=== PATIENT | female | born 1990 | race Caucasian/White ===

== ENCOUNTER → 2017-03-11 18:15 | Observation (INO) ==
[2017-03-11 16:45] LABS: Bilirubin,Urine Negative (Negative); Blood,Urine Negative (Negative); Clarity,Urine Cloudy (Clear); Color,Urine Yellow (Yellow); Glucose,Urine (UA) Normal (Normal); Ketones,Urine Negative (Negative); Leukocyte Esterase,Urine Negative (Negative); Nitrite,Urine Negative (Negative); Protein,Urine 30 mg/dL (Neg-Trace); Urobilinogen,Urine Normal (Normal)
[2017-03-11 16:52] LABS: Amphetamine Screen,Urine Negative ng/mL (Cutoff=1000); Barbiturate Screen,Urine Negative ng/mL (Cutoff=200); Benzodiazepines Screen,Urine Negative ng/mL (Cutoff=200); Cannabinoid Screen,Urine Negative ng/mL (Cutoff = 50); Cocaine Screen,Urine Negative ng/mL (Cutoff= 300); Opiate Screen,Urine Negative ng/mL (Cutoff=300); Phencyclidine Screen,Urine Negative ng/mL (Cutoff=25)
[2017-03-11 16:56] LABS: Squamous Epithelial Cell,Urine Many per lpf (None-Few)
[2017-03-11 16:57] LABS: Amorphous Sediment,Urine Few (Few); Bacteria,Urine Moderate per hpf (None-Few); RBC,Urine 0-3 per hpf (0-3)
--- NOTE | 2017-03-11 17:48 | OB/GYN Progress Note ---
Date of Encounter: 03/11/17 Time of Encounter: 17:35 - Assessment and Plan (1) with 30 completed weeks gestation Current Visit: Yes Status: Acute (2) Vaginal discharge in in third trimester Current Visit: Yes Status: Acute - Cervical exam showed negative pooling, negative nitrazine, and negative ferning test. - Vaginosis panel obtained - UA showed proteinuria, negative UTI Subjective - Subjective Principal diagnosis: watery discharge Interval history: Reena is a 26 y/o female at 30+6 weeks with a pmh of preeclampsia with first child presented to the ED with watery gushes beginning this morning. Patient states that they did not soak through her pants but did soak through her underwear the first time but not the other two times. Patient states that she had back pain last night which has resolved. The patient states movement is normal and it does not really contractions. Patient states that she had an elevated blood pressure in the office yesterday of 150/80 for today was 130/80. Patient denies fever, chills, weakness, dizziness, diarrhea, dysuria, recent fall. Patient does admit to having a headache 5/10 today but attributes it to not sleeping for the last 2 days because Patient denies vaginal bleeding. I examined this patient and my medical decision-making was reviewed with the Resident Physician. I agree with the documented findings, disposition and treatment plan as described except to the extent set forth below. DONNIE Conrad Antepartum ROS: loss of fluid, movement normal, no vaginal bleeding, no contractions Objective - Vital Signs Vital Signs: Intake and Output BP 138/80. Temp 99.5F 03/11/17 03/11/17 03/11/17 07:59 15:59 23:59 Other: Weight 85 kg Patient Weight 03/11/17 23:59 Weight 85 kg - Exam FHR: category 1 Auscultation: bilateral: normal Abdomen: Present: normal appearance, soft Cervical dilation: cervical os closed. Comments: Speculum exam showed negative pooling, negative nitrazine, negative ferning - Labs Labs: Abnormal lab results Urine Clarity Cloudy (Clear) A 03/11/17 16:35 Urine Protein 30 mg/dL (Neg-Trace) H 03/11/17 16:35 Urine Microscopic WBC 3-5 per hpf (0-3) H 03/11/17 16:35 Ur Squamous Epith Cells Many per lpf (None-Few) H 03/11/17 16:35 Urine Bacteria Moderate per hpf (None-Few) H 03/11/17 16:35
--- NOTE | 2017-03-11 18:07 | Discharge Summary ---
Date of Encounter: 03/11/17 Time of Encounter: 18:05 - Discharge Diagnosis (1) with 30 completed weeks gestation Priority: Primary Status: Acute (2) Vaginal discharge in in third trimester Priority: Secondary Status: Acute Comments: speculum exam:Negative pooling, negative, Nitrazine. vaginosis panel collected. Will call patient with results. (3) NST (non-stress test) reactive Priority: Secondary Status: Acute Comments: FHR baseline 145bpm. Moderate variability. + 15 x 15. No decels noted. - Discharge Medications Home Medications: Vit/Iron Fumarate/FA [ Tablet] 1 each PO DAILY 03/11/17 [ History] Ranitidine HCl [Zantac] 150 mg PO DAILY 03/11/17 [History] Allergies/Adverse Reactions: 3 Allergy/AdvReac Type Severity Reaction Status Date / Time ferrous sulfate Allergy Rash Verified 03/11/17 16:50 Data Procedures and tests throughout hospitalization: Laboratory Tests 03/11/17 03/11/17 16:35 16:35 Urine Color Yellow Urine Clarity Cloudy A Urine pH 7.0 Ur Specific Brohman 1.020 Urine Protein 30 H Urine Glucose (UA) Normal Urine Ketones Negative Urine Blood Negative Urine Nitrite Negative Urine Bilirubin Negative Urine Urobilinogen Normal Ur Leukocyte Esterase Negative Urine Microscopic RBC 0-3 Urine Microscopic WBC 3-5 H Ur Squamous Epith Cells Many H Amorphous Sediment Few Urine Bacteria Moderate H Ur Culture Indicated? NO Urine Opiates Screen Negative Ur Barbiturates Screen Negative Ur Phencyclidine Scrn Negative Ur Amphetamines Screen Negative U Benzodiazepines Scrn Negative Urine Cocaine Screen Negative U Marijuana (THC) Screen Negative Labs on day of discharge: Labs from last 24 hours 03/11/17 03/11/17 16:35 16:35 Urine Color Yellow Urine Clarity Cloudy A Urine pH 7.0 Ur Specific Brohman 1.020 Urine Protein 30 H Urine Glucose (UA) Normal Urine Ketones Negative Urine Blood Negative Urine Nitrite Negative Urine Bilirubin Negative Urine Urobilinogen Normal Ur Leukocyte Esterase Negative Urine Microscopic RBC 0-3 Urine Microscopic WBC 3-5 H Ur Squamous Epith Cells Many H Amorphous Sediment Few Urine Bacteria Moderate H Ur Culture Indicated? NO Urine Opiates Screen Negative Ur Barbiturates Screen Negative Ur Phencyclidine Scrn Negative Ur Amphetamines Screen Negative U Benzodiazepines Scrn Negative Urine Cocaine Screen Negative U Marijuana (THC) Screen Negative Date of admission: 03/11/17 16:10 Primary care physician: PCP NONE Discharging clinician: Alda Anderson Anticipated date of discharge: 03/11/17 - Patient Status Disposition: Home, Self-Care Condition: Good Functional capacity at discharge: independent ambulation Overall status at discharge: patient is progressing back to baseline - Discharge Instructions Follow Up With: NONE,PCP [Primary Care Provider] - Miguel Love DO [Partnered Physician] - Additional Instructions: LABOR AND DELIVERY DISCHARGE INSTRUCTIONS Signs and Symptoms to be Reported to your Doctor Immediately: * Sudden gush, continuous or intermittent lead of fluid from vagina (note the time of gush and color of fluid) * Onset of bright red vaginal bleeding with or without pain (if you had a vaginal exam during this visit you may notice some dark red spotting. This is normal.) * Lower abdominal cramping or backache that is premenstrual-like feeling. * More than 6 contractions in one hour. * Burning during urination, having to urinate more frequently or pain in your mid-back. * A change in the baby's activity. This could be an increase or decrease in activity. * Severe headache which does not go away with tylenol. * Sudden swelling in the face, hands, arms and/or legs. * Upper abdominal pain - sometimes associated with heartburn or nausea and is not relieved by Maalox, Mylanta or Tums. * Dizziness or blurred vision or visual disturbances (seeing stars/lights). * Kick Counts One hour after a meal, lay down on one side in a quiet place. Count the number of fede the baby moves during an hour. If less than 6 movements, notify your physician. Diet: *Force fluids - 8-10 tall glasses of fluid per day. May include popsicles and jello. 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 Time Attestation: Total time spent providing and/or coordinating discharge services: Time Spent: Less than 30 minutes Exam - Constitutional General appearance IM: A&O X 3, pleasant, answers questions appropriately - VTE Reasons for not Prescribing Prophylaxis: Treatment not Indicated - Low risk for VTE
[2017-03-11 18:20] LABS: Candida DNA ***DETECTED*** (Not Detect); Gardnerella DNA Not Detected (Not Detect); Trichomonas DNA Not Detected (Not Detect)
== END | disposition home or self-care (01) ==
LOC: 1NENULAB
PROVIDERS: ADMIT Obstetrics & Gynecology; ATTEND Obstetrics & Gynecology

== ENCOUNTER → 2017-03-30 19:01 | Observation (INO) ==
[2017-03-30 17:40] LABS: Bilirubin,Urine Negative (Negative); Blood,Urine Negative (Negative); Clarity,Urine Cloudy (Clear); Color,Urine Yellow (Yellow); Glucose,Urine (UA) Normal (Normal); Ketones,Urine 40 mg/dL (Negative); Leukocyte Esterase,Urine Negative (Negative); Nitrite,Urine Negative (Negative); PH,Urine 6.5 pH Units (5.0-8.0); Protein,Urine 30 mg/dL (Neg-Trace); Specific Gravity,Urine 1.015 (1.010-1.025); Urobilinogen,Urine Normal (Normal)
[2017-03-30 17:41] LABS: Amphetamine Screen,Urine Negative ng/mL (Cutoff=1000); Barbiturate Screen,Urine Negative ng/mL (Cutoff=200); Benzodiazepines Screen,Urine Negative ng/mL (Cutoff=200); Cannabinoid Screen,Urine Negative ng/mL (Cutoff = 50); Cocaine Screen,Urine Negative ng/mL (Cutoff= 300); Opiate Screen,Urine Negative ng/mL (Cutoff=300); Phencyclidine Screen,Urine Negative ng/mL (Cutoff=25)
--- NOTE | 2017-03-30 17:42 | OB/GYN Progress Note ---
Date of Encounter: 03/30/17 Time of Encounter: 17:37 - Assessment and Plan (1) 33 weeks gestation of Current Visit: Yes Status: Acute Continuous monitoring. speculum exam: Cervix appeared closed. Vaginosis panel collected and sent to lab (2) Abdominal pain during in third trimester Current Visit: Yes Status: Acute labor evaluation (3) NST (non-stress test) reactive Current Visit: No Status: Acute 130 bpm, moderate variability, +15x15 accels, no decels. Reactive NST Subjective - Subjective Principal diagnosis: R/O labor Interval history: Pt is a 26-year-old [id number] at 33w3d who presents with complaints of intermittent abdominal pain for the past several hours. Reports positive movement. Denies vaginal bleeding and leakage of fluid. Pt states she was diagnosed with URI earlier today and has a low-grade temperature. Reports two previous term deliveries with no history of labor. C/S x 2, primary c/s for intolerance to labor d/t nuchal cord. Antepartum ROS: movement normal, contractions, no loss of fluid, no vaginal bleeding Objective - Exam FHR: category 1 FHR comments: FHR 130 bpm, moderate variability, +15x15 accels, no decels. Auscultation: bilateral: normal Abdomen: Present: normal appearance, soft, gravid Uterus: Present: normal Cervical dilation: FT Cervix effacement: thick station: high Comments: Uterine irritability noted on contraction monitor.
[2017-03-30 17:45] LABS: Bacteria,Urine Few per hpf (None-Few); Hyaline Casts,Urine None Seen per lpf (None-Few); RBC,Urine 0-3 per hpf (0-3); Squamous Epithelial Cell,Urine Many per lpf (None-Few)
[2017-03-30 18:01] LABS: Amorphous Sediment,Urine Few (Few)
[2017-03-30 18:39] LABS: Candida DNA ***DETECTED*** (Not Detect); Gardnerella DNA Not Detected (Not Detect); Trichomonas DNA Not Detected (Not Detect)
--- NOTE | 2017-03-30 18:44 | Discharge Summary ---
Date of Encounter: 03/30/17 Time of Encounter: 18:44 - Discharge Diagnosis (1) 33 weeks gestation of Priority: Primary Status: Acute (2) Abdominal pain during in third trimester Priority: Secondary Status: Acute (3) NST (non-stress test) reactive Priority: Secondary Status: Acute (4) Yeast infection Priority: Secondary Status: Acute Comments: RX for Terazol cream - Discharge Medications Prescriptions: Terconazole [Terazol 7] 45 gm VG HS 7 Days #1 cream.[email or web address] Home Medications: Vit/Iron Fumarate/FA [ Tablet] 1 each PO DAILY 03/11/17 [ History] Ranitidine HCl [Zantac] 150 mg PO DAILY 03/11/17 [History] Acetaminophen [Tylenol] 650 mg PO Q6HR PRN tablet 03/30/17 [Rx] Terconazole [Terazol 7] 45 gm VG HS 7 Days #1 cream.[email or web address] 03/30/17 [Rx] Allergies/Adverse Reactions: 3 Allergy/AdvReac Type Severity Reaction Status Date / Time ferrous sulfate Allergy Rash Verified 03/11/17 16:50 Data Procedures and tests throughout hospitalization: Laboratory Tests 03/30/17 03/30/17 03/30/17 17:23 17:23 17:35 Urine Color Yellow Urine Clarity Cloudy A Urine pH 6.5 Ur Specific Bieber 1.015 Urine Protein 30 H Urine Glucose (UA) Normal Urine Ketones 40 H Urine Blood Negative Urine Nitrite Negative Urine Bilirubin Negative Urine Urobilinogen Normal Ur Leukocyte Esterase Negative Urine Microscopic RBC 0-3 Urine Microscopic WBC 3-5 H Ur Squamous Epith Cells Many H Amorphous Sediment Few Urine Bacteria Few Hyaline Casts None Seen Ur Culture Indicated? NO Urine Opiates Screen Negative Ur Barbiturates Screen Negative Ur Phencyclidine Scrn Negative Ur Amphetamines Screen Negative U Benzodiazepines Scrn Negative Urine Cocaine Screen Negative U Marijuana (THC) Screen Negative Doris species DNA DETECTED A Gardnerella DNA Probe Not Detected Trichomonas DNA Probe Not Detected Labs on day of discharge: Labs from last 24 hours 03/30/17 03/30/17 03/30/17 17:35 17:23 17:23 Urine Color Yellow Urine Clarity Cloudy A Urine pH 6.5 Ur Specific Bieber 1.015 Urine Protein 30 H Urine Glucose (UA) Normal Urine Ketones 40 H Urine Blood Negative Urine Nitrite Negative Urine Bilirubin Negative Urine Urobilinogen Normal Ur Leukocyte Esterase Negative Urine Microscopic RBC 0-3 Urine Microscopic WBC 3-5 H Ur Squamous Epith Cells Many H Amorphous Sediment Few Urine Bacteria Few Hyaline Casts None Seen Ur Culture Indicated? NO Urine Opiates Screen Negative Ur Barbiturates Screen Negative Ur Phencyclidine Scrn Negative Ur Amphetamines Screen Negative U Benzodiazepines Scrn Negative Urine Cocaine Screen Negative U Marijuana (THC) Screen Negative Doris species DNA DETECTED A Gardnerella DNA Probe Not Detected Trichomonas DNA Probe Not Detected Date of admission: 03/30/17 17:11 Discharging clinician: Alda Anderson Anticipated date of discharge: 03/30/17 - Patient Status Disposition: Home, Self-Care Condition: Good Functional capacity at discharge: independent ambulation - Discharge Instructions Follow Up With: Miguel Love DO [Partnered Physician] - - Diet and Activity Activity: increase activity as tolerated Diet: regular diet 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 CAt. 1 tracing. No contractions - VTE Reasons for not Prescribing Prophylaxis: Treatment not Indicated - Low risk for VTE
[~2017-03-30 19:01] MED LIST: Acetaminophen 325 MG TABLET PO PRN
== END | disposition home or self-care (01) ==
LOC: 1NENULAB
PROVIDERS: ADMIT Student in an Organized Health Care Education/Training Program; ATTEND Student in an Organized Health Care Education/Training Program

== ENCOUNTER → 2017-04-15 17:09 | Observation (INO) ==
--- NOTE | 2017-04-15 15:12 | OB/GYN History & Physical ---
Date of Encounter: 04/15/17 Time of Encounter: 15:08 Assessment and Plan (1) 35 weeks gestation of Current visit: Yes Status: Acute Patient 35 weeks and 5 days. Denies vaginal bleeding, cramping or fluid leakage. We will perform PIH rule out labs. Disposition pending these results. (2) Hypertension affecting in third trimester Current visit: Yes Status: Acute Patient states she feels she has had high blood pressure. We will closely monitor vital signs and perform PIH workup. Disposition pending these results. History of Present Illness HPI: Ms. Fernandes is a 26 year old female who is 35 weeks and 5 days presenting to labor and delivery with concern for high blood pressure. Patient was seen in the office yesterday and had initial blood pressure 170/90 and a repeat blood pressure of 126/76. She was told to come to the labor and delivery unit if she felt like her blood pressure was increasing. Patient has had 2 spontaneous abortions. Her first was complicated by preeclampsia. Patient states last evening she had a headache which she took Tylenol 4 and this morning it was still mildly there. She states it is gone now. She states today while she was in the shower she started seeing lights flashing in her eyes. She has been feeling facial flushing and this is normally how she feels when her blood pressure is elevated. Patient denies any vaginal bleeding, cramping or fluid leakage. Denies any fevers, chest pain or shortness of breath. Denies any dizziness or passing out. Patient is HIV and Treponema negative. Rubella immune. Blood type O positive and no antibodies. Patient does have a child born with cleft lip. She is a history of 2 previous C -sections. Of note this is with a new father. Past Med Surg Social Fam HX - Past Medical History Medical history: no medical history Psychiatric history: no psych history - Past Surgical History Surgical History: - Social History Smoking Status: Never smoker Smokeless Tobacco Status: No Alcohol use: none Drug use: none - Family History Mother Living Status: Still Living Hx Family Respiratory Disorders: No Hx Family Cancer: No Hx Family GI Disorders: No Hx Family Endocrine Disorder: No Hx Family Neuromuscular Disorders: No Hx Family Neurologic Disorders: No Hx Family HEENT Disorders: No Hx Family Autoimmune Disorders: No Obstetrical History - Pregnancies : 5 Para: 2 Term: 2 : 0 Ab's: 2 Livin Medications and Allergies Vit/Iron Fumarate/FA [ Tablet] 1 each PO DAILY 03/11/17 [ History] Ranitidine HCl [Zantac] 150 mg PO DAILY 03/11/17 [History] Cephalexin [Keflex] 500 mg PO BID 04/15/17 [History] 3 Allergy/AdvReac Type Severity Reaction Status Date / Time ferrous sulfate Allergy Rash Verified 03/11/17 16:50 Review of System OB All systems PM: reviewed and no additional remarkable complaints except as stated - Neurological Nerological: headache(s) Exam - Constitutional Constitutional: well developed, well nourished, no acute distress, obese - HEENT HEENT: Normocephaly, Mucus Membranes Moist - Neck Neck exam: full ROM, normal inspection - Lungs Respiratory exam: CTAB - Cardiovascular Cardiovascular exam: RRR - Abdomen Abdomen: Present: bowel sounds normal, gravid, non tender - Extremities Deep Tendon Reflex Grade: 2+ Normal - Uterus Uterus exam: Present: enlarged (gravid), normal contour Results Result Diagrams: 04/15/17 15:40 04/15/17 15:40 All other labs normal. - VTE Reasons for not Prescribing Prophylaxis: Treatment not Indicated - Low risk for VTE
[2017-04-15 15:57] LABS: Basophils % 0.3 %; Eosinophils % 0.3 %; Hematocrit 32.4 % (35.3-44.9); Hemoglobin 10.7 g/dL (11.5-15.4); Immature Granulocytes % 0.8 % (0-4); Lymphocytes # 1.3 K/mcL (0.6-4.6); Lymphocytes % 13.3 %; Mean Corpuscular Hemoglobin 27.9 pg (28.0-33.3); Mean Corpuscular Volume 84.6 fL (83.0-100.0); Mean Platelet Volume 13.2 fL (9.4-12.4); Monocytes # 0.8 K/mcL (0.0-1.3); Monocytes % 8.4 %; Neutrophils # 7.6 K/mcL (1.6-8.9); Platelet Count 186 K/mcL (140-400); Red Blood Count 3.83 M/mcL (3.82-4.97); Segmented Neutrophils % 76.9 %
[2017-04-15 15:59] LABS: Bilirubin,Urine Negative (Negative); Blood,Urine Negative (Negative); Color,Urine Yellow (Yellow); Glucose,Urine (UA) Normal (Normal); Ketones,Urine Negative (Negative); Leukocyte Esterase,Urine Negative (Negative); Nitrite,Urine Negative (Negative); Protein,Urine Trace mg/dL (Neg-Trace); Specific Gravity,Urine 1.014 (1.010-1.025); Urobilinogen,Urine Normal (Normal)
[2017-04-15 16:05] LABS: Amphetamine Screen,Urine Negative ng/mL (Cutoff=1000); Barbiturate Screen,Urine Negative ng/mL (Cutoff=200); Benzodiazepines Screen,Urine Negative ng/mL (Cutoff=200); Cannabinoid Screen,Urine Negative ng/mL (Cutoff = 50); Cocaine Screen,Urine Negative ng/mL (Cutoff= 300); Opiate Screen,Urine Negative ng/mL (Cutoff=300); Phencyclidine Screen,Urine Negative ng/mL (Cutoff=25)
[2017-04-15 16:09] LABS: Clarity,Urine Slightly Hazy (Clear)
[2017-04-15 16:13] LABS: Alanine Aminotransferase 9 Units/L (7-52); Aspartate Amino Transferase 10 Units/L (13-39); BUN/Creatinine Ratio 9 (6-26); Blood Urea Nitrogen 4 mg/dL (6-20); Lactate Dehydrogenase 123 Units/L (140-271); Uric Acid 3.7 mg/dL (2.3-7.6); eGFR For African Americans > 60 (> 60); eGFR For Non-African Americans > 60 (> 60)
[2017-04-15 16:45] LABS: Protein/Creatinine Ratio,Urine 0.27 mg/mg (0.00-0.20)
== END | disposition home or self-care (01) ==
LOC: 1NENULAB
PROVIDERS: ADMIT Emergency Medicine; ATTEND Obstetrics & Gynecology

== ENCOUNTER → 2017-04-21 14:15 | Observation (INO) ==
[2017-04-21 13:02] LABS: Basophils % 0.2 %; Eosinophils % 0.3 %; Hemoglobin 11.1 g/dL (11.5-15.4); Immature Granulocytes % 0.9 % (0-4); Lymphocytes % 13.3 %; Mean Corpuscular HGB Conc 32.6 g/dL (31.6-35.5); Mean Corpuscular Hemoglobin 27.3 pg (28.0-33.3); Mean Corpuscular Volume 83.7 fL (83.0-100.0); Mean Platelet Volume 13.6 fL (9.4-12.4); Monocytes % 8.2 %; Platelet Count 175 K/mcL (140-400); Red Blood Count 4.06 M/mcL (3.82-4.97); Segmented Neutrophils % 77.1 %
[2017-04-21 13:03] LABS: Lymphocytes # 1.4 K/mcL (0.6-4.6); Monocytes # 0.9 K/mcL (0.0-1.3); Neutrophils # 8.2 K/mcL (1.6-8.9)
[2017-04-21 13:25] LABS: Amphetamine Screen,Urine Negative ng/mL (Cutoff=1000); Barbiturate Screen,Urine Negative ng/mL (Cutoff=200); Benzodiazepines Screen,Urine Negative ng/mL (Cutoff=200); Cannabinoid Screen,Urine Negative ng/mL (Cutoff = 50); Cocaine Screen,Urine Negative ng/mL (Cutoff= 300); Opiate Screen,Urine Negative ng/mL (Cutoff=300); Phencyclidine Screen,Urine Negative ng/mL (Cutoff=25)
[2017-04-21 13:27] LABS: Protein/Creatinine Ratio,Urine 0.26 mg/mg (0.00-0.20)
[2017-04-21 13:34] LABS: Alanine Aminotransferase 7 Units/L (7-52); Aspartate Amino Transferase 12 Units/L (13-39); BUN/Creatinine Ratio 11 (6-26); Blood Urea Nitrogen 4 mg/dL (6-20); Lactate Dehydrogenase 131 Units/L (140-271); Uric Acid 4.1 mg/dL (2.3-7.6); eGFR For African Americans > 60 (> 60); eGFR For Non-African Americans > 60 (> 60)
[2017-04-21 13:40] VITALS: BP 116/72
--- NOTE | 2017-04-21 13:49 | OB/GYN Progress Note ---
Date of Encounter: 04/21/17 Time of Encounter: 13:35 - Assessment and Plan (1) Hypertension affecting in third trimester Current Visit: Yes Status: Acute Assessment: 27 year old presenting with vision changes and hypertension at 36 weeks + 4 days GA BP in triage: 124/76, 120/72 PIH labs negative Category I FHR tracing Plan: Discharge home today Routine labor precautions PIH precautions Follow up in the office as scheduled Laboratory Results - last 24 hr 04/21/17 04/21/17 04/21/17 12:20 12:20 12:20 WBC 10.6 RBC 4.06 Hgb 11.1 L Hct 34.0 L MCV 83.7 MCH 27.3 L MCHC 32.6 RDW 14.0 Plt Count 175 MPV 13.6 H Immature Gran % 0.9 Seg Neutrophils % 77.1 Lymphocytes % 13.3 Monocytes % 8.2 Eosinophils % 0.3 Basophils % 0.2 Neutrophils # 8.2 Lymphocytes # 1.4 Monocytes # 0.9 Eosinophils # 0.0 Basophils # 0.0 BUN 4 L Creatinine 0.38 L Est GFR ( Amer) > 60 Est GFR (Non-Af Amer) > 60 BUN/Creatinine Ratio 11 Uric Acid 4.1 AST 12 L ALT 7 Lactate Dehydrogenase 131 L Urine Creatinine Protein/Creatinin Ratio Urine Total Protein Urine Opiates Screen Negative Ur Barbiturates Screen Negative Ur Phencyclidine Scrn Negative Ur Amphetamines Screen Negative U Benzodiazepines Scrn Negative Urine Cocaine Screen Negative U Marijuana (THC) Screen Negative 04/21/17 12:20 WBC RBC Hgb Hct MCV MCH MCHC RDW Plt Count MPV Immature Gran % Seg Neutrophils % Lymphocytes % Monocytes % Eosinophils % Basophils % Neutrophils # Lymphocytes # Monocytes # Eosinophils # Basophils # BUN Creatinine Est GFR ( Amer) Est GFR (Non-Af Amer) BUN/Creatinine Ratio Uric Acid AST ALT Lactate Dehydrogenase Urine Creatinine 47 Protein/Creatinin Ratio 0.26 H Urine Total Protein 12 Urine Opiates Screen Ur Barbiturates Screen Ur Phencyclidine Scrn Ur Amphetamines Screen U Benzodiazepines Scrn Urine Cocaine Screen U Marijuana (THC) Screen Subjective - Subjective Principal diagnosis: PIH evaluation Interval history: complicated by blood pressures trending up and vision changes today. GBS unknown Rubella immune Varicella immune Blood type: O+ PMH: PPH after G2 PSH: section x 2 Meds: Cephalexin 500 MG Capsule Imitrex 100 MG Tablet Plus 27-1 MG Tablet Ranitidine HCl 150 MG Tablet Terazol cream Allergies: Iron HPI: Pt sent from office today for increase in BP trending over past visits. Today she was also experiencing vision changes. Reports good FM. Denies ctx, vb , LOF. Antepartum ROS: other (vision changes today) Objective - Vital Signs Vital Signs: Vital Signs Temp Pulse Resp BP 04/21/17 12:40 98.1 F 86 18 124/76 Intake and Output 04/20/17 04/21/17 04/21/17 23:59 07:59 15:59 Other: Weight 86.2 kg Patient Weight 04/21/17 23:59 Weight 86.2 kg - Exam FHR: category 1 FHR comments: Baseline 150 Moderate variability Accelerations present 15x15 Decelerations absent Pyatt: uterine irritability Auscultation: bilateral: normal Abdomen: Present: normal appearance, soft, gravid Uterus: Present: normal - Labs Labs: Abnormal lab results Hgb 11.1 g/dL (11.5-15.4) L 04/21/17 12:20 Hct 34.0 % (35.3-44.9) L 04/21/17 12:20 MCH 27.3 pg (28.0-33.3) L 04/21/17 12:20 MPV 13.6 fL (9.4-12.4) H 04/21/17 12:20 BUN 4 mg/dL (6-20) L 04/21/17 12:20 Creatinine 0.38 mg/dL (0.60-1.20) L 04/21/17 12:20 AST 12 Units/L (13-39) L 04/21/17 12:20 Lactate Dehydrogenase 131 Units/L (140-271) L 04/21/17 12:20 Protein/Creatinin Ratio 0.26 mg/mg (0.00-0.20) H 04/21/17 12:20
== END | disposition home or self-care (01) ==
LOC: 1NENULAB
PROVIDERS: ADMIT Obstetrics & Gynecology; ATTEND Obstetrics & Gynecology

== ENCOUNTER 2017-12-11 04:37 | Observation (INO) ==
[2017-12-11] MEDS ORDERED: Ondansetron 4 MG/2 ML VIAL IVP PRN ×2 (05:43→15:17)
[2017-12-11] MEDS: Ringers Solution, Lactated 1,000 ML IVC SCH ×3 (06:13→15:34)
--- NOTE | 2017-12-11 10:27 | General Surg History&Physical ---
<GildardoAsherSaqib R - Last Filed: 12/11/17 10:47> Date of Encounter: 12/11/17 Time of Encounter: 08:30 Assessment and Plan (1) Abdominal pain Current Visit: Yes Status: Acute The assessment and plan as outlined above was discussed with the patient and/or family members who expressed understanding and agreement. All questions were answered. Patient remains tender to palpation of the RLQ, WBC 17.5 CT abdomen and pelvis revealed prominent RLQ lymph nodes, was equivocal for acute appendicitis Plan: IV antibiotics-Zosyn Nothing by mouth IV fluids To OR today for laparoscopic appendectomy Comfort care pain management prn antiemetic Qualifiers: Abdominal location: right lower quadrant Qualified Code(s): R10.31 - Right lower quadrant pain History of Present Illness Chief complaint: abdominal pain HPI: Ms. Fernandes is a 27 year old female with no significant medical history. She presented to [facility] ED early this a.m. for evaluation of sudden onset right lower quadrant abdominal pain. This started approximately 1 AM, waking the patient from sleep. She did experience diarrhea at onset. Pain is sharp in quality and 9 out of 10 initially. Associated periumbilical pain. Patient states that she was well yesterday evening and denies history of similar pain. Denies nausea, vomiting, or fevers. Denies history of ovarian cysts. Surgical history significant for 3 prior sections, with most recent in April of this year. Status post tubal ligation. At present patient's pain is better controlled, however right lower quadrant is photographer still. She has received Zofran for nausea. Denies recent vomiting. Denies diarrhea, constipation or chills. Past Med Surg Social Fam HX - Past Medical History Medical history: no medical history Additional medical history: UMBILICAL HERNIA Psychiatric history: anxiety - Past Surgical History Surgical History: Additional surgical history: c section x 3. tubal - Social History Smoking Status: Never smoker Smokeless Tobacco Status: No Alcohol use: none Drug use: none - Family History Mother Adopted: No Living Status: Still Living Hx Family Cardiac Disorders: No Hx Family Respiratory Disorders: No Hx Family Cancer: No Hx Family GI Disorders: No Hx Family Endocrine Disorder: No Hx Family Neuromuscular Disorders: No Hx Family Neurologic Disorders: No Hx Family HEENT Disorders: No Hx Family Autoimmune Disorders: No Medications and Allergies No Known Home Drugs 12/11/17 [History] 3 Allergy/AdvReac Type Severity Reaction Status Date / Time ferrous sulfate Allergy Mild Rash Verified 12/11/17 01:55 Review of Systems All systems PM: The remainder of the systems were reviewed and are negative - Constitutional no chills, no fever(s) - Cardiovascular no chest pain - Respiratory no dyspnea - Gastrointestinal abdominal pain, loose stools, no diarrhea, no hematemesis, no hematochezia, no melena, no nausea, no vomiting - Genitourinary Genitourinary: no dysuria General Surgery Exam Initial Vital Signs Temp Pulse Resp BP Pulse Ox 99.3 F 94 16 148/92 97 12/11/17 05:10 12/11/17 05:10 12/11/17 05:10 12/11/17 05:10 12/11/17 05:10 - General physical appearance well developed, well nourished, no distress - Eyes PERRL, normal ocular movement - ENT normal mucosa, atraumatic, normocephalic - Neck trachea midline, no venous distension - Respiratory normal expansion, normal respiratory effort, clear to auscultation - Cardiovascular Cardiovascular exam: Present: RRR, no murmurs/rubs/gallops - Abdomen Abdomen general surgery: Present: bowel sounds present (Infrequent), soft, tender, rebound (Tenderness of the right lower quadrant to palpation, rebound is present, no guarding), surgical scars (Well-healed prior section scar). Absent: distended, guarding, rigid - Integumentary Integumentary general surgery: Present: warm and dry - Neurologic Present: CN 2-12 grossly intact - Musculoskeletal Present: normal posture - Psychiatric Psychiatric general surgery: Present: A&Ox3, oriented to person, oriented to place, oriented to time, speech is normal Results - Labs All other labs normal. <Jose Ryder - Last Filed: 12/11/17 12:46> Date of Encounter: 12/11/17 History of Present Illness HPI: Ms. Fernandes is a 27 year old female Review of Systems All systems PM: The remainder of the systems were reviewed and are negative General Surgery Exam Initial Vital Signs Temp Pulse Resp BP Pulse Ox 99.3 F 94 16 148/92 97 12/11/17 05:10 12/11/17 05:10 12/11/17 05:10 12/11/17 05:10 12/11/17 05:10 Results - Labs All other labs normal. - Attending Attestation I have personally seen and examined the patient. I have reviewed pertinent labs , imaging, progress notes, including this one. I agree with the above assessment and plan and wish to include the following... 27F with acute appendicits; okay for OR
[2017-12-11] MEDS ORDERED: OXYCODONE Oral CONC 10 MG/0.5 ML ORAL.SYG SL PRN ×2 (10:42→15:17)
[2017-12-11] MEDS ORDERED: Ketorolac 15 MG/ML VIAL IVP PRN ×2 (10:44→15:17)
[2017-12-11] MEDS ORDERED: Piperacillin/Tazobactam 3.375 GM in 0.9 % Sodium Chloride Mini Bag 100 ML IVPB SCH (11:30)
[2017-12-11] MEDS ORDERED: *HR* Propofol 200 MG/20 ML VIAL IVP ONE (12:36)
[2017-12-11] MEDS ORDERED: *HR* Midazolam HCl 2 MG/2 ML VIAL ONE (12:36)
[2017-12-11] MEDS ORDERED: *HR* Rocuronium Bromide 50 MG/5 ML VIAL ONE (12:36)
[2017-12-11] MEDS ORDERED: Lidocaine -MPF 2% 2 ML VIAL ONE (12:36)
[2017-12-11] MEDS ORDERED: *HR* FentaNYL (PF) 100 MCG/2 ML VIAL ONE (12:36)
--- NOTE | 2017-12-11 12:36 | Anesthesia Evaluation PreOp ---
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 Other Medical History: Denies Any Significant HX Anesthesia History: No Prior Anesthetic Complications : No Test: Negative Alcohol Use: none Drug use: none Medications and Allergies No Known Home Drugs 12/11/17 [History] 3 Allergy/AdvReac Type Severity Reaction Status Date / Time ferrous sulfate Allergy Mild Rash Verified 12/11/17 01:55 - Meds/Allergy Pre-op Review Medications Reviewed: Yes Allergies Reviewed: Yes Beta Blockers on Current Med List: No Anesthesia Results - Labs Laboratory Tests 04/26/17 04/26/17 12/11/17 10:11 10:11 02:22 Hgb 11.7 12.8 Hct 35.9 38.3 Plt Count 162 251 Sodium Potassium BUN 6 Creatinine 0.39 L Urine Test 12/11/17 12/11/17 02:22 02:34 Hgb Hct Plt Count Sodium 137 Potassium 3.2 L BUN 11 Creatinine 0.70 Urine Test Negative Anesthesia Exam O2 Sat Height 1.65 m Weight 71.214 kg O2 Sat by Pulse Oximetry 99 O2 Sat by Pulse Oximetry 99 O2 Sat by Pulse Oximetry 97 Vital Signs Temp Pulse Resp BP Pulse Ox 99.3 F 94 16 148/92 97 12/11/17 05:10 12/11/17 05:10 12/11/17 05:10 12/11/17 05:10 12/11/17 05:10 Height: 5'5 Weight: 157 lbs NPO (# of Hours): MN Pain Scale: 1 - HEENT Pupil (Motor): Pupils equal, EOMI Mallampati: II Teeth: Normal Oral Opening: Greater than 3 - COSMETICS AND TOILETRIES SALESPERSON LOC: Oriented COSMETICS AND TOILETRIES SALESPERSON Motor: Normal RUE, Normal LUE, Normal RLE, Normal LLE, Normal Face [employer]MET[employer] AND TOILE[employer]IES SALESPERSON Sensory: Normal: RUE, LUE, RLE, LLE, Face - Cardiac Rhythm: Regular Murmur: None JVD: No Carotid Bruit: No - Pulmonary Breath Sounds: bilateral Clear Respiratory Effort: Symmetrical Anesthesia Assess/Plan ASA Score: 1 Modified Bingham Scale for Level of Consciousness: Cooperative, oriented, and tranquil Anesthetic Plan: General Monitoring Plan: Standard Monitors Recovery Plan: PACU (Discussed GA, agrees to proceed)
[2017-12-11] MEDS ORDERED: Ondansetron 4 MG/2 ML VIAL IVP ONE (12:58)
[2017-12-11] MEDS ORDERED: *HR* Promethazine 25 MG/ML VIAL IVP PRN (12:58)
[2017-12-11] MEDS ORDERED: *HR* Morphine 2 MG/ML SYRINGE IVP PRN (12:58)
[2017-12-11] MEDS ORDERED: Famotidine 20 MG/2 ML VIAL ONE (13:01)
[2017-12-11] MEDS ORDERED: Acetaminophen IV 1,000 MG/100 ML INFUS..BTL ONE (13:01)
[2017-12-11] MEDS ORDERED: Dexamethasone 4 MG/ML VIAL ONE (13:40)
[2017-12-11] MEDS ORDERED: Ketorolac 30 MG/ML VIAL ONE (13:40)
[2017-12-11] MEDS ORDERED: Ondansetron 4 MG/2 ML VIAL ONE (13:40)
[2017-12-11] MEDS ORDERED: Neostigmine Methylsulfate 3 MG/3 ML SYRINGE ONE (13:49)
--- NOTE | 2017-12-11 15:07 | Operative Note ---
Date of procedure: 12/11/17 Pre-op diagnosis: acute appendicitis Post-op diagnosis: same Procedure: laparoscopic appendectomy Implants: none Complications: none Anesthesia: GETA Local Anesthetics: 0.5% Sensorcaine HCL SubQ (cc) Surgeon: Jose Ryder Was there an sales assistant entertainment and media present: No Flatwork Presser Other: Tj Braswell Estimated blood loss (cc): 5 Specimen: appendix Condition: stable Disposition: PACU Procedure in Detail: The patient was brought into the operating room suite. The patient was placed in the supine position. Mechanical DVT prophylaxis was initiated. The patient underwent smooth induction of general endotracheal anesthesia. The patient was prepped and draped in the usual fashion. Preoperative antibiotics were given. A timeout was held identifying the correct patient, pathology, and procedure. Everyone was in agreement and we began a procedure. Incision to Mesenteric Window I started bycreating a supraumbilical incision and via open Jarquin technique entered into the abdomen. I then used a Vicryl suture on a UR 6 needle in a [id number] fashion to reapproximate but not close the fascia. I then inserted the 10 trocar followed by the camera to visualize the intraabdominal cavity. I then created a 5 mm incision suprapubically and inserted the 5 mm trocar under direct visualization. Roughly 1 handbreadth lateral to the umbilical incision I created another 5 mm incision and inserted another 5 mm trocar under direct visualization. I then inserted the nontraumatic instruments into the 5 mm ports and began the procedure. I was able to identify the tinea coli coalescing at the base of the cecum to identify the appendix. Using the nontraumatic grasper I was able to grasp the appendix and then using the [place] dissector was able to create a mesenteric window. Mesenteric Window to Appendectomy I then inserted the nontraumatic grasper into the same mesenteric window to widen it. I then grasped the appendix and switched from the 10 mm camera to the 5 mm camera so that we can insert the stapler through the umbilical port. The teeth of the stapler through the mesenteric window. It should be stated that the stapler was a 45 mm bowel load stapler. It was positioned at the base of the appendix and I was able to confirm under direct visualization that the teeth contained no other structures such as the cecum. I then fired the stapler and resected the appendix from the base of the cecum. I then loaded up a vascular load stapler and then in the similar fashion did fire across the mesentery. Retrieval to Closure I then inserted the Endo Catch bag to retrieve the specimen which was intact upon retrieval. I then switched back to the 10 mm camera and inserted the nontraumatic grasper as well as a suction-electronic assembler group leader into the 5 mm ports. And under direct visualization I was able to appreciate the staple line of the mesoappendix as well as the staple line of the base of the cecum. There was no obvious leaking nor bleeding. The pelvis did not have any collection of fluid. I then concluded the procedure, turned off the insufflation, removed the trochars under direct visualization, and then closed the umbilical fascia using the Vicryl suture that was placed at the beginning. I then closed all incisions with interrupted 4-0 Monocryl. And then sealed with Dermabon. It should be stated that I did use 0.5% Marcaine as a local anesthetic. The patient tolerated the procedure well and did go back to PACU in stable condition.
--- NOTE | 2017-12-11 15:27 | Anesthesia Evaluation Post Op ---
Date of Encounter: 12/11/17 Time of Encounter: 15:20 - Vital Signs Vital Signs: Vital Signs/O2 Sat/Glucose, Most Current Temp Pulse Resp BP Pulse Ox 12/11/17 15:15 75 123/80 99 12/11/17 15:00 97.6 F 77 16 126/90 98 12/11/17 14:51 70 16 126/91 98 12/11/17 14:41 78 16 132/97 100 12/11/17 14:31 97 F L 125 14 140/94 99 12/11/17 11:53 98.4 F 86 18 125/81 99 - Lungs Lungs: Clear Ascult./Percussion - Airway Airway: Non-obstructed - Cardiovascular Regular Rate - Mental Status Mental Status: Alert & Oriented, Answers Appropriately - Pain Pain Scale: 0 - Nausea Vomiting Nausea Vomiting: Not Present - Hydration Hydration: Ice chips - Discharge PostOp Status: Transfer Patient to floor
[2017-12-12] MEDS: Ringers Solution, Lactated 1,000 ML IVC SCH (01:13)
[2017-12-12 12:05] VITALS: BP 111/68
--- NOTE | 2017-12-12 12:23 | Discharge Summary ---
<Saqib Ewing R - Last Filed: 12/12/17 12:20> Orders not resulted at time of discharge: Pending orders 12/11/17 14:28 Surgical Pathology [PTH] Routine Date of Encounter: 12/12/17 Time of Encounter: 12:24 - Discharge Diagnosis (1) Acute appendicitis Priority: Primary Status: Acute Qualifiers: Qualified Code(s): K35.89 - Other acute appendicitis General Surgery Exam Initial Vital Signs Temp Pulse Resp BP Pulse Ox 99.3 F 94 16 148/92 97 12/11/17 05:10 12/11/17 05:10 12/11/17 05:10 12/11/17 05:10 12/11/17 05:10 - General physical appearance well developed, well nourished, no distress, no pain - Eyes normal ocular movement - ENT normal mucosa, atraumatic, normocephalic - Neck trachea midline - Respiratory normal expansion, normal respiratory effort, clear to auscultation - Cardiovascular Cardiovascular exam: Present: RRR - Abdomen Abdomen general surgery: Present: bowel sounds present, soft, tender (Expected postsurgical tenderness) - Integumentary Integumentary general surgery: Present: warm and dry - Neurologic Present: CN 2-12 grossly intact - Musculoskeletal Present: normal posture - Psychiatric Psychiatric general surgery: Present: A&Ox3, speech is normal, memory intact - Hospital Course Hospital course: Ms. Fernandes is a 27 year old female without significant medical history. She presented for evaluation of right lower quadrant pain on 12/11/2017 as transfer from [place] emergency department. Patient was suspected to have acute appendicitis given physical exam findings and CT images. Patient was taken to the operating room on 12/11/2017 for laparoscopic appendectomy. Patient tolerated the procedure well. Postoperatively patient has done well. Pain is well-controlled with oral medications. She is tolerating regular diet without nausea or vomiting. She is ambulating without assistance. Patient reports that right lower quadrant pain has resolved since surgery. She denies change in bowel, fever, or chills. Vital signs been within normal limits and stable. Patient is ready for discharge this afternoon. She will follow-up with outpatient surgery, Dr. Ryder, in approximately 2 weeks. - Time Spent with Patient Total time spent providing and/or coordinating discharge services: - Discharge Medications Prescriptions: OxyCODONE/APAP 5/325 [Percocet 5/325 MG] 1 each PO Q6HR PRN 7 Days #28 tablet PRN Reason: Pain Home Medications: OxyCODONE/APAP 5/325 [Percocet 5/325 MG] 1 each PO Q6HR PRN 7 Days #28 tablet [Rx] Allergies/Adverse Reactions: 3 Allergy/AdvReac Type Severity Reaction Status Date / Time ferrous sulfate Allergy Mild Rash Verified 12/11/17 01:55 Date of admission: 12/11/17 04:40 Primary care physician: PCP NONE Discharging clinician: Saqib Ewing Anticipated date of discharge: 12/12/17 - Patient Status Disposition: Home, Self-Care Condition: Good Overall status at discharge: patient is progressing back to baseline - Discharge Instructions Instructions: Oxycodone/Acetaminophen (By mouth), Laparoscopic Appendectomy (DC ) Follow Up With: Jose Ryder MD [Non-Partnered Physician] - (The office should call you with a follow up appointment. Please call them if you have not heard anything with in 1-2 working days. Thank you.) NONE,PCP [Primary Care Provider] - Additional Instructions: General Surgical Discharge Instructions 1. No pushing, pulling, or lifting greater than 15 lbs for 2-4 weeks (depending upon procedure). 2. You may shower beginning today, but no tub baths, soaking, or swimming for 2 weeks. 3. You may resume driving when you are off narcotics and are safe to react in a car. 4. Take ibuprofen every 8 hours for discomfort. If this does not relieve discomfort, you may take the as needed Percocet. Take narcotics as directed. Do not take more narcotics then directed and do not share your narcotics with any other person. Do not drink alcohol while on narcotics. 5. Take stool softeners (Colace) or a water based laxative (Miralax) while taking narcotics. You may hold for loose stools. 6. Report any fevers greater than 100.5F, increase abdominal discomfort, drainage that looks like pus, increased redness or pain at the surgical site, or any vomiting. 7. Report any pain in the calves, shortness of breath, or rapid heartbeat. 8. Follow-up in the office as directed. 9. If you were prescribed antibiotics, do not stop them without talking to your provider. Follow up with Dr. Ryder in 2 weeks - Diet and Activity Activity: increase activity as tolerated Diet: advance to your usual diet <Jose Ryder - Last Filed: 12/12/17 17:08> Orders not resulted at time of discharge: Pending orders 12/11/17 14:28 Surgical Pathology [PTH] Routine Date of Encounter: 12/12/17 General Surgery Exam Initial Vital Signs Temp Pulse Resp BP Pulse Ox 99.3 F 94 16 148/92 97 12/11/17 05:10 12/11/17 05:10 12/11/17 05:10 12/11/17 05:10 12/11/17 05:10 - Hospital Course Hospital course: Ms. Fernandes is a 27 year old female - Time Spent with Patient Total time spent providing and/or coordinating discharge services: Date of admission: 12/11/17 04:40 Primary care physician: PCP NONE - Attending Attestation patient seen and examined. i have reviewed all labs, imaging, and notes. i agree with the above assessment and plan and wish to add the following... okay for discharge follow up in two weeks
== END 2017-12-12 12:50 | disposition home or self-care (01) ==
LOC: 3BNU
PROVIDERS: ADMIT Student in an Organized Health Care Education/Training Program; ATTEND Surgery